=== PATIENT | male | born 1945 | race Caucasian/White ===

== ENCOUNTER 2022-02-10 09:30 | Emergency (ER) | payer OTHER ==
[2022-02-10] MEDS ORDERED: Lidocaine 1% (PF) 30 ML VIAL ONE (09:55)
[2022-02-10] MEDS ORDERED: Bacitracin 1 PK ONE (10:18)
== END 2022-02-10 10:29 | disposition home or self-care (01) ==
LOC: MADERS 09:30
DX: S60.450A Superficial foreign body of right index finger, initial encounter (principal); S60.552A Superficial foreign body of left hand, initial encounter; S60.457A Superficial foreign body of left little finger, initial encounter; I10 Essential (primary) hypertension; E78.00 Pure hypercholesterolemia, unspecified; E11.9 Type 2 diabetes mellitus without complications; X58.XXXA Exposure to other specified factors, initial encounter; Z87.891 Personal history of nicotine dependence; Z79.4 Long term (current) use of insulin; Z79.899 Other long term (current) drug therapy
CPT/HCPCS: 99283; J2001